=== PATIENT | female | born 1980 | race Caucasian/White ===

== ENCOUNTER → 2021-07-09 07:19 | Outpatient (CLI) | payer OTHER, SELFPAY ==
[2021-07-09 08:36] LABS: Chloride 104 mmol/L (98-107)
[2021-07-09 08:37] LABS: Sodium 137 mmol/L (136-145)
[2021-07-09 08:39] LABS: Alanine Aminotransferase 12 U/L (12-78); Alkaline Phosphatase 85 U/L (38-126); Aspartate Amino Transferase 18 U/L (14-36); Bilirubin,Total 0.6 mg/dl (0.2-1.3); Blood Urea Nitrogen 21 mg/dl (7-17); Estimated Glomerular Filt Rate 111 ml/min (>60); GFR (African American) 135 ML/MIN (>60)
[2021-07-09 08:40] LABS: Albumin Level 4.2 g/dl (3.5-5.0); Albumin/Globulin Ratio 1.6 (1.1-1.8); Calcium 9.5 mg/dl (8.4-10.2); Carbon Dioxide 21 mmol/L (22.0-30.0); Chol/HDL Ratio 3.6 (1-3.5); Cholesterol 147 mg/dl (140-200); Globulin 2.7 g/dL (1.3-3.2); Glucose 196 mg/dl (74-100); HDL Cholesterol 41 mg/dl (40-60); Total Protein,Serum 6.9 g/dl (6.3-8.2); Triglycerides 114 mg/dl (30-150); VLDL Cholesterol 23 mg/dL (0-40)
[2021-07-09 08:41] LABS: Creatinine,Urine Random 37 mg/dL (Not Estab.)
[2021-07-09 08:44] LABS: Microalbumin < 6.000 mg/L (0-16.7)
[2021-07-09 08:51] LABS: Direct LDL Cholesterol 78.42 mg/dL (100-129)
[2021-07-09 08:58] LABS: 25-OH Vitamin D, Total 46.3 ng/mL (30-100)
[2021-07-09 09:10] LABS: Thyroid Stimulating Hormone 0.51 uIU/mL (0.465-4.68)
[2021-07-10 09:22] LABS: Miscellaneous Test 291
== END ==
PROVIDERS: Visit Provider Specialist
DX: E13.9 Other specified diabetes mellitus without complications (principal); E78.5 Hyperlipidemia, unspecified; E55.9 Vitamin D deficiency, unspecified
CPT/HCPCS: 36415; 80053; 80061; 82043; 82306; 82570; 83036; 84443

== ENCOUNTER 2022-05-06 09:01 | Inpatient (IN) | payer BC, SELFPAY ==
[2022-05-06] VITALS (15 sets, daily range): BP systolic 105–127; BP diastolic 57–80; PULSE 99–125; RESP 16–25; TEMP 36.7–37.6; O2SAT 92–100; BMI 30.9; BMI 31.4
--- NOTE | 2022-05-06 09:18 | HMH.EDCP ---
ED Disposition Clinical Impression: Chest pain Qualifiers: Chest pain type: unspecified Qualified Code(s): R07.9 - Chest pain, unspecified DKA (diabetic ketoacidosis) Qualifiers: Diabetes mellitus type: type 1 Diabetes mellitus complication detail: without coma Qualified Code(s): E10.10 - Type 1 diabetes mellitus with ketoacidosis without coma Disposition: Admitted as Observation Condition on Discharge: Serious Referrals: Ramiro Avalos MD [Primary Care Provider] - - Critical Care Critical Care Time: Yes Attestation: On , the high probability of a clinically significant, sudden or life threatening deterioration of the following system(s) required my full and direct attention, intervention and personal management. The time I documented below is in addition to time spent performing reported procedures but includes the following listed in this critical care notation. Total Critical Care Time: 35 Vital system(s) involved:: Metabolic Failure My critical care processes included: Assessment & monitoring of V/S, Data Review/Interpretation, Coordinating Care, Medication Orders and management, Documentation Medical Decision Making - Fam Inquiry Pt receiving controlled substance: No Vital Signs: 05/06/22 09:12 05/06/22 09:30 05/06/22 09:34 Temperature 98.3 F Temperature Source Oral Pulse Rate 115 H 118 H Pulse Rate [Right Radial] 125 H Respiratory Rate 19 Blood Pressure 125/80 125/80 Blood Pressure [Left Arm] 110/78 Blood Pressure Mean 88 Blood Pressure Mean [Left Arm] 88 Blood Pressure Source [Left Arm] Automatic Cuff Blood Pressure Position [Left Arm] Sitting 02 Sat by Pulse Oximetry 99 98 98 Oxygen Delivery Method Room Air 05/06/22 10:00 Temperature Temperature Source Pulse Rate 110 H Pulse Rate [Right Radial] Respiratory Rate 16 Blood Pressure 114/80 Blood Pressure [Left Arm] Blood Pressure Mean 86 Blood Pressure Mean [Left Arm] Blood Pressure Source [Left Arm] Blood Pressure Position [Left Arm] 02 Sat by Pulse Oximetry 98 Oxygen Delivery Method - Lab Data Lab results reviewed: Yes: I reviewed the patient's lab results. Lab Results 05/06/22 09:15: POC Glucose 298 H 05/06/22 09:27: WBC 16.9 H, RBC 5.05, Hgb 16.1, Hct 52.5 H, MCV 103.8 H, MCH 31.9 H, MCHC 30.7 L, RDW 13.1, Plt Count 386, MPV 7.6, Neut % (Auto) 86.5 H, Lymph % (Auto) 9.6 L, [place] % (Auto) 2.7, Eos % (Auto) 0.4, Baso % (Auto) 0.8, Neut # (Auto) 14.6 H, Lymph # (Auto) 1.6, [place] # (Auto) 0.5, Eos # (Auto) 0.1, Baso # (Auto) 0.1 05/06/22 09:27: Sodium 131 L, Potassium 5.0, Chloride 99, Carbon Dioxide 6 L*, Anion Gap 31.0 H, BUN 24 H, Creatinine 1.00, Estimated Creat Clear 96, Estimated GFR 61, Est GFR ( Amer) 74, Glucose 328 H, Calcium 10.5 H, Total Bilirubin 0.8, AST 40 H, ALT 34, Alkaline Phosphatase 125, Troponin I < 0.01, NT-Pro-B Natriuret Pep 45.7, Total Protein 8.5 H, Albumin 5.0, Globulin 3.5 H, Albumin/Globulin Ratio 1.4 05/06/22 09:27: PT 10.6, INR 0.93, APTT 28.9 05/06/22 09:27: Acetone Level Moderate 05/06/22 09:57: VBG pH 7.14 L, VBG pCO2 27.4 L, VBG pO2 78.2 H, VBG HCO3 9.0 L, VBG Total CO2 9.9 L, VBG O2 Saturation 93.6 H, VBG Base Excess -20.0 L Result diagrams: 05/06/22 09:27 05/06/22 09:27 Orders (Tests/Meds): ED MEDICATIONS Generic Name Dose Route Start Last Admin Trade Name Freq PRN Reason Stop Dose Admin Sodium Chloride 1,000 mls @ 999 mls/hr 05/06/22 09:24 05/06/22 09:29 Sod Chlor 0.9% 1000ml Bag IV 05/06/22 10:24 999 mls/hr .Q1H1M ONE Administration Insulin Human Regular 100 unit 101 mls @ 8.08 mls/hr 05/06/22 10:00 / Sodium Chloride IV 06/05/22 09:59 .[id number] SARAVANAN Protocol 8 UNIT/HR Discontinued Medications Generic Name Dose Route Start Last Admin Trade Name Freq PRN Reason Stop Dose Admin Aspirin 324 mg 05/06/22 09:27 05/06/22 09:28 Aspirin 81mg Chewable Tablet PO 05/06/22 09:28 324 mg ONCE ONE Administration Abigail
--- NOTE | 2022-05-06 09:20 | XR_ITS ---
FINAL REPORT CLINICAL HISTORY: Acute chest pain FINDINGS: A single portable view of the chest was obtained. The heart size and pulmonary vascularity are within normal limits. The mediastinum is within normal limits. No acute pulmonary abnormality is identified. The bony thorax is intact. IMPRESSION: No active cardiopulmonary disease. Reviewed, Interpreted and Dictated by Robb Lucero III, MD Transcribed by Amanda Montgomery Authenticated and [facility]
[2022-05-06 09:23] LABS: POC Glucose,Bedside 298 (70-110)
--- NOTE | 2022-05-06 09:29 | PC.NURSE ---
rad at BS
[2022-05-06 09:34] LABS: Basophils # 0.1 K/mm3 (0-0.2); Basophils % 0.8 % (0.1-2.0); Eosinophils # 0.1 K/mm3 (0.0-0.4); Eosinophils % 0.4 % (0.1-12.0); Hematocrit 52.5 % (37.0-47.0); Hemoglobin 16.1 g/dL (12.2-16.2); Lymphocytes # 1.6 K/mm3 (0.7-4.5); Lymphocytes % 9.6 % (10-50); Mean Corpuscular HGB Conc 30.7 g/dL (31.8-35.4); Mean Corpuscular Hemoglobin 31.9 pg (27.0-31.2); Mean Corpuscular Volume 103.8 fl (81-99); Mean Platelet Volume 7.6 fl (7.4-10.4); Monocytes # 0.5 K/mm3 (0.1-1.0); Monocytes % 2.7 % (1.7-9.3); Neutrophils # 14.6 K/mm3 (1.8-7.8); Neutrophils % 86.5 % (37.0-80.0); Platelet Count 386 K/mm3 (142-424); Red Blood Count 5.05 M/mm3 (4.20-5.40); Red Cell Distribution Width 13.1 % (11.5-17.5); White Blood Count 16.9 K/mm3 (4.8-10.8)
--- NOTE | 2022-05-06 09:39 | ECG_ITS ---
APPROVED REPORT Exam: Resting ECG HR:114 bpm ECG Measurements Heart Rate 114 AXES MS 104 P 6 QRSd 94 QRS 6 QT 333 T 19 QTc 401 Conclusion SINUS TACHYCARDIA WITH SHORT MS INTERVAL ABNORMAL RHYTHM ECG UNCONFIRMED REPORT Electronically signed by : Sushant Mak MD 05/06/2022 21:43:25
[2022-05-06 09:42] LABS: Chloride 99 mmol/L (98-107); Sodium 131 mmol/L (136-145)
[2022-05-06 09:44] LABS: Blood Urea Nitrogen 24 mg/dl (7-17); Creatinine Clearance Estimated 96 mL/min (50-200); Estimated Glomerular Filt Rate 61 ml/min (>60); GFR (African American) 74 ML/MIN (>60)
[2022-05-06 09:45] LABS: Alanine Aminotransferase 34 U/L (12-78); Albumin/Globulin Ratio 1.4 (1.1-1.8); Alkaline Phosphatase 125 U/L (38-126); Aspartate Amino Transferase 40 U/L (14-36); Bilirubin,Total 0.8 mg/dl (0.2-1.3); Calcium 10.5 mg/dl (8.4-10.2); Globulin 3.5 g/dL (1.3-3.2); Glucose 328 mg/dl (74-100); Total Protein,Serum 8.5 g/dl (6.3-8.2)
[2022-05-06 09:46] LABS: MANUAL DIFFERENTIAL MANUAL DIFFERENTIAL (MANUAL DIFF)
[2022-05-06 09:54] LABS: Carbon Dioxide 6 mmol/L (22.0-30.0); NT Pro Brain Natriuretic Pep. 45.7 pg/mL (0-125)
--- NOTE | 2022-05-06 09:54 | PC.NURSE ---
lab called with critical CO2, notified KELLEE BARAKAT at this time
--- NOTE | 2022-05-06 09:56 | PC.NURSE ---
KELLEE BARAKAT reports he is going to start pt on insulin drip, states once we get pt started on the insulin we are then to turn pts insulin pump off.
[2022-05-06 09:59] LABS: Troponin I < 0.01 ng/ml (0.00-0.034)
--- NOTE | 2022-05-06 09:59 | PC.NURSE ---
notified RT of Vbg
--- NOTE | 2022-05-06 10:01 | PC.NURSE ---
contacted pharmacy for insulin drip Order placed per this nurse via verbal order per ER MD, order was repeated and verified Insulin drip (regular insulin) at 8 units/hr, repeat fsbs in 1 hour.
[2022-05-06 10:06] LABS: Activated Partial Thrombo Time 28.9 seconds (22.8-30.6); INR 0.93 (0.9-1.1); Prothrombin Time 10.6 seconds (10.1-12.5)
[2022-05-06 10:07] LABS: VBG Oxygen Saturation 93.6 % (50-70); VBG PCO2 27.4 mmol/L (35-51); VBG PO2 78.2 mmol/L (28-40); VBG Total CO2 9.9 mmol/L (23-27)
[2022-05-06 10:08] LABS: Coronavirus 19, PCR Not Detected (NotDetected); Influenza A, PCR Not Detected (NotDetected); Influenza B, PCR Not Detected (NotDetected)
[2022-05-06 10:11] LABS: Acetone, Serum (Rapid) Moderate (None Detect)
[2022-05-06 10:11] LABS: VBG PH 7.14 mmol/L (7.31-7.41)
--- NOTE | 2022-05-06 10:11 | PC.NURSE ---
's office has been called. He will call back.
--- NOTE | 2022-05-06 10:12 | PC.NURSE ---
on the phone with
--- NOTE | 2022-05-06 10:16 | PC.NURSE ---
Care management has been called.
[2022-05-06 10:25] LABS: Lymphocytes % 19 % (10-50); Macrocytosis 1+; Monocytes % 1 % (2-9); Neutrophils % 80 % (42-76); Total Cells Counted 100
[2022-05-06 10:26] LABS: Platelet Estimate Normal
--- NOTE | 2022-05-06 10:26 | PC.NURSE ---
Tv Production Assistant is going to bring an IV pump down to ED so we can begin this insulin drip
[2022-05-06 10:27] LABS: Giant Platelets 1+
--- NOTE | 2022-05-06 10:27 | PC.NURSE ---
per warehouse processor pt assigned to room 217
--- NOTE | 2022-05-06 11:42 | PC.NURSE ---
Rounded on patient. Patient asked if she could get something for nausea and some crackers. Gave patient crackers and informed nurse and doctor that patient felt nauseous.
[2022-05-06 11:46] LABS: POC Glucose,Bedside 191 (70-110)
--- NOTE | 2022-05-06 11:49 | PC.NURSE ---
attempted to call report to second floor at this time, no answer from receiving nurse.
--- NOTE | 2022-05-06 11:54 | PC.NURSE ---
Called report to Janell
--- NOTE | 2022-05-06 11:58 | PC.NURSE ---
Lab will be to collect lab as ordered
[2022-05-06 12:02] LABS: Microscopic, Urine URINE MICROSCOPIC (MICROSCOPIC)
[2022-05-06 12:16] LABS: Appearance,Urine CLEAR (Clear); Bilirubin,Urine Negative (Negative); Blood, Urine 1+ (Negative); Color,Urine YELLOW (Yellow); Glucose,Urine (UA) 2+ (Negative); Ketones,Urine 3+ (Negative); Leukocyte Esterase,Urine Negative (Negative); Nitrate,Urine Negative (Negative); PH,Urine 5.5 (5.0-8.5); Protein,Urine TRACE (Negative); Specific Gravity, Urine >= 1.030 (1.005-1.030); Urobilinogen,Urine 0.2 EU/dl (0.2)
--- NOTE | 2022-05-06 12:17 | PC.NURSE ---
brought patient up from er to 217 at approximately 1210
[2022-05-06 12:29] LABS: Bacteria,Urine Trace /lpf; RBC,Urine Occasional #/hpf (0-3); Yeast,Urine 2+ /lpf
[2022-05-06 12:47] LABS: Chloride 101 mmol/L (98-107); Sodium 132 mmol/L (136-145)
[2022-05-06 12:48] LABS: Potassium 4.8 mmoL/L (3.5-5.1)
[2022-05-06 12:50] LABS: Blood Urea Nitrogen 21 mg/dl (7-17); Creatinine Clearance Estimated 123 mL/min (50-200); Estimated Glomerular Filt Rate 79 ml/min (>60); GFR (African American) 96 ML/MIN (>60)
[2022-05-06 12:51] LABS: Anion Gap 24.8 mEq/L (5-15); Calcium 9.7 mg/dl (8.4-10.2); Carbon Dioxide 11 mmol/L (22.0-30.0); Glucose 181 mg/dl (74-100)
--- NOTE | 2022-05-06 12:53 | HMH.PHAVTE ---
[facility] Pharmacy VTE Monitoring - Patient Demographics Admission date: 05/06/22 Report Date: 05/06/22 Time: 12:54 Allergies/Adverse Reactions: Patient Allergies No Known Allergies Allergy (Verified 01/12/21 13:39) Height: 1.63 m Weight: 83.121 kg Patient Problems: Current Active Problems Chest pain (Acute) DKA (diabetic ketoacidosis) (Acute) - VTE Risk Labs: VTE Related Lab Results Hgb 16.1 g/dL (12.2-16.2) 05/06/22 09:27 Hct 52.5 % (37.0-47.0) H 05/06/22 09:27 Plt Count 386 K/mm3 (142-424) 05/06/22 09:27 PT 10.6 seconds (10.1-12.5) 05/06/22 09:27 INR 0.93 (0.9-1.1) 05/06/22 09:27 APTT 28.9 seconds (22.8-30.6) 05/06/22 09:27 BUN 21 mg/dl (7-17) H 05/06/22 12:13 Creatinine 0.80 mg/dl (0.52-1.04) 05/06/22 12:13 Estimated Creat Clear 123 mL/min (50-200) 05/06/22 12:13 Was VTE Risk Assessment Performed: Yes VTE Score: 0 Clinical Trial Participant: No - Prophylaxis VTE Prophylaxis Ordered?: Yes Types of VTE Prophylaxis: TEDS Knee High
[2022-05-06 13:00] LABS: Acetone, Serum (Rapid) Small (None Detect)
[2022-05-06 15:50] LABS: Chloride 104 mmol/L (98-107); Potassium 4.4 mmoL/L (3.5-5.1); Sodium 130 mmol/L (136-145)
[2022-05-06 15:53] LABS: Anion Gap 16.4 mEq/L (5-15); Blood Urea Nitrogen 19 mg/dl (7-17); Carbon Dioxide 14 mmol/L (22.0-30.0); Creatinine Clearance Estimated 140 mL/min (50-200); Estimated Glomerular Filt Rate 93 ml/min (>60); GFR (African American) 112 ML/MIN (>60); Glucose 147 mg/dl (74-100)
[2022-05-06 18:17] LABS: POC Glucose,Bedside 118 (70-110)
[2022-05-06 18:17] LABS: POC Glucose,Bedside 121 (70-110)
[2022-05-06 18:17] LABS: POC Glucose,Bedside 133 (70-110)
[2022-05-06 18:17] LABS: POC Glucose,Bedside 117 (70-110)
--- NOTE | 2022-05-06 18:20 | PC.NURSE ---
shift summary: New admitfor DKA. Pt A&OX4. O2 sat high 90s on RA. No BM this shift. Insulin drip is at 4 units/hr. FSBS q2. NS is running at150 mL/hr. Pt. ambulates independently. call light in reach, bed in lowest position and wheels locked.
[2022-05-06 20:30] LABS: Anion Gap 12.3 mEq/L (5-15); Blood Urea Nitrogen 19 mg/dl (7-17); Calcium 8.4 mg/dl (8.4-10.2); Carbon Dioxide 16 mmol/L (22.0-30.0); Chloride 105 mmol/L (98-107); Creatinine Clearance Estimated 140 mL/min (50-200); Estimated Glomerular Filt Rate 93 ml/min (>60); GFR (African American) 112 ML/MIN (>60); Glucose 201 mg/dl (74-100); Potassium 4.3 mmoL/L (3.5-5.1); Sodium 129 mmol/L (136-145)
[2022-05-06 20:32] LABS: Acetone, Serum (Rapid) Moderate (None Detect)
[2022-05-06 20:47] LABS: POC Glucose,Bedside 153 (70-110)
--- NOTE | 2022-05-06 21:00 | HMH.HP ---
*Admission Date: 05/06/22 *Chief complaint: Vomiting, fatigue *History of present illness: 41-year-old female who has had known diabetes for 8 years. Initially diagnosed as type II, but with medicine failures saw endocrinology at [facility] and was diagnosed as a type 1.5 diabetic and transitioned over to insulin and has been on an insulin pump for the past several years. Has done very well and has never been in DKA before. Continues to take metformin and Farxiga for cardiovascular and kidney benefits. About 5 days ago had some mild nausea and felt unwell but then recovered on Friday but went to a wedding on Friday where she drank quite a bit of alcohol and the following day did not feel like eating or drinking much and became somewhat more nauseated. This morning she came to the ER because her glucose was very high and she felt poorly and had acetone in her urine. Was found to have moderate acetone in her blood, low pH and hyperglycemia. Admitted to hospital with DKA protocol. [facility] History I have reviewed the patient's past medical history: Yes Medical History: Reports:: Diabetes Mellitus Type 1, Diabetes Mellitus Type 2, Hyperlipidemia, Hypertension *Have you ever received a pneumonia vaccine?: No *Have you received a flu vaccine this season?: Yes Other Surgeries: Yes: Cholecystectomy, Diagnostic Lap Amputation: No Fractures: No - *Social History Last grade of school completed: Some college Smoking Status: Current every day smoker Tobacco Type: cigarettes # Packs/Day (cigarettes): 1 Alcohol Intake: current Alcohol Intake Frequency:: holidays/special occasions only *Occupational Status:: employed Housing: house Household Members: family *Travel in the last 8 weeks: None Family Hx:: Cancer, Stroke Review of Systems - Review of Systems Review of systems:: pertinent systems reviewed and negative unless documented below Meds Home Medications Medication Instructions Recorded Confirmed Type citalopram 20 mg tablet 20 mg PO DAILY 30 Days #30 03/14/18 05/06/22 History metformin 500 mg tablet,extended 500 mg PO BID 30 Days #120 03/14/18 05/06/22 History release 24 hr pravastatin 20 mg tablet 20 mg PO DAILY 30 Days #30 03/14/18 05/06/22 History lisinopril 5 mg tablet 5 mg PO DAILY tab 01/12/21 05/06/22 History Aspirin [Low Dose Aspirin EC] 81 mg PO DAILY 05/06/22 05/06/22 History Dapagliflozin Propanediol [Farxiga] 10 mg PO DAILY 05/06/22 05/06/22 History Insulin Aspart [Novolog] See Protocol SQ DIRECTED PRN 05/06/22 05/06/22 History Allergies Allergy/AdvReac Type Severity Reaction Status Date / Time No Known Allergies Allergy Verified 01/12/21 13:39 Exam Vital signs and Labs for Last 24 Hours: Temp Pulse Resp BP Pulse Ox 99.7 F H 106 H 25 H 127/68 96 05/06/22 20:00 05/06/22 18:00 05/06/22 18:00 05/06/22 18:00 05/06/22 20:00 Laboratory Results - last 24 hr 05/06/22 09:15: POC Glucose 298 H 05/06/22 09:27: WBC 16.9 H, RBC 5.05, Hgb 16.1, Hct 52.5 H, MCV 103.8 H, MCH 31.9 H, MCHC 30.7 L, RDW 13.1, Plt Count 386, MPV 7.6, Neut % (Auto) 86.5 H, Lymph % (Auto) 9.6 L, [place] % (Auto) 2.7, Eos % (Auto) 0.4, Baso % (Auto) 0.8, Neut # (Auto) 14.6 H, Lymph # (Auto) 1.6, [place] # (Auto) 0.5, Eos # (Auto) 0.1, Baso # (Auto) 0.1, Total Counted 100, Neutrophils % (Manual) 80 H, Lymphocytes % (Manual) 19, Monocytes % (Manual) 1 L, Platelet Estimate Normal, Giant Platelets 1+, Macrocytosis 1+ 05/06/22 09:27: Sodium 131 L, Potassium 5.0, Chloride 99, Carbon Dioxide 6 L*, Anion Gap 31.0 H, BUN 24 H, Creatinine 1.00, Estimated Creat Clear 96, Estimated GFR 61, Est GFR ( Amer) 74, Glucose 328 H, Calcium 10.5 H, Total Bilirubin 0.8, AST 40 H, ALT 34, Alkaline Phosphatase 125, Troponin I < 0.01, NT-Pro-B Natriuret Pep 45.7, Total Protein 8.5 H, Albumin 5.0, Globulin 3.5 H, Albumin/Globulin Ratio 1.4 05/06/22 09:27: PT 10.6, INR 0.93, APTT 28.9 05/06/22 09:27: Acetone Level Moderate 05/06/22 09:57: VBG pH
--- NOTE | 2022-05-06 21:20 | PC.NURSE ---
GAP IS CLOSED AT 8, BUT ACETONE STILL PRESENT RESULTED MODERATE; KEEPING INSULIN DRIP ON AT RATE OF 4UNITS/HR PER DKA PROTOCOL
[2022-05-07] VITALS (8 sets, daily range): BP systolic 103–122; BP diastolic 61–76; PULSE 74–101; RESP 12–20; TEMP 36.7–37.2; O2SAT 92–99; BMI 32.2
[2022-05-07 06:08] LABS: Basophils % 0.4 % (0.1-2.0); Eosinophils # 0.1 K/mm3 (0.0-0.4); Eosinophils % 0.4 % (0.1-12.0); Hematocrit 42.6 % (37.0-47.0); Lymphocytes # 2.6 K/mm3 (0.7-4.5); Lymphocytes % 25.1 % (10-50); Mean Corpuscular HGB Conc 31.2 g/dL (31.8-35.4); Mean Corpuscular Hemoglobin 31.7 pg (27.0-31.2); Mean Corpuscular Volume 101.7 fl (81-99); Mean Platelet Volume 7.4 fl (7.4-10.4); Monocytes # 0.5 K/mm3 (0.1-1.0); Monocytes % 5.1 % (1.7-9.3); Neutrophils # 7.1 K/mm3 (1.8-7.8); Platelet Count 267 K/mm3 (142-424); Red Blood Count 4.19 M/mm3 (4.20-5.40); Red Cell Distribution Width 13.4 % (11.5-17.5); White Blood Count 10.3 K/mm3 (4.8-10.8)
[2022-05-07 06:12] LABS: Chloride 109 mmol/L (98-107); Potassium 3.7 mmoL/L (3.5-5.1); Sodium 133 mmol/L (136-145)
[2022-05-07 06:13] LABS: Hemoglobin 13.3 g/dL (12.2-16.2)
[2022-05-07 06:15] LABS: Anion Gap 10.7 mEq/L (5-15); Blood Urea Nitrogen 14 mg/dl (7-17); Carbon Dioxide 17 mmol/L (22.0-30.0); Creatinine Clearance Estimated 202 mL/min (50-200); Estimated Glomerular Filt Rate 137 ml/min (>60); GFR (African American) 165 ML/MIN (>60)
[2022-05-07 06:16] LABS: Calcium 8.1 mg/dl (8.4-10.2); Glucose 130 mg/dl (74-100)
[2022-05-07 06:16] LABS: POC Glucose,Bedside 180 (70-110)
[2022-05-07 06:16] LABS: POC Glucose,Bedside 107 (70-110)
[2022-05-07 06:16] LABS: POC Glucose,Bedside 100 (70-110)
[2022-05-07 06:16] LABS: POC Glucose,Bedside 138 (70-110)
[2022-05-07 06:16] LABS: POC Glucose,Bedside 103 (70-110)
[2022-05-07 06:16] LABS: POC Glucose,Bedside 112 (70-110)
[2022-05-07 06:20] LABS: Acetone, Serum (Rapid) Small (None Detect)
--- NOTE | 2022-05-07 08:18 | PC.NURSE ---
Dr. Rogelio rizo. Insulin gtt turned OFF and pt's subq insulin pump restarted. Repeat BMP @ 4pm today. May d/c home later today pending blood sugar results and BMP result.
--- NOTE | 2022-05-07 13:38 | PC.NURSE ---
ROUNDED ON PATIENT ON MORNING ROUNDS WITH MD. PROVIDED SUPERVISOR COVERING AND LINING TO CHARGE PATIENTS INSULIN PUMP. PATIENT IS SITTING UP IN BED FEELING BETTER. NO CONCERNS WITH HER MEDICATIONS. HAS A PLAN AT HOME IF PUMP DOESN'T WORK. MD PLANS TURN INSULIN DRIP OFF AND SEE HOW PUMP MANAGES TODAY AND PATIENT COULD POSSIBLY DC THIS AFTERNOON. NO QUESTIONS. HAS A FOLLOW UP WITH LABORER PIE BAKERY COMING UP IN MAY. AFTERNOON ROUNDS NOTED TO BE SLEEPING. NO ISSUES HAVE BEEN NOTED.
[2022-05-07 16:47] LABS: Anion Gap 9.9 mEq/L (5-15); Blood Urea Nitrogen 13 mg/dl (7-17); Calcium 8.2 mg/dl (8.4-10.2); Carbon Dioxide 21 mmol/L (22.0-30.0); Chloride 109 mmol/L (98-107); Creatinine Clearance Estimated 202 mL/min (50-200); Estimated Glomerular Filt Rate 137 ml/min (>60); GFR (African American) 165 ML/MIN (>60); Glucose 173 mg/dl (74-100); Potassium 3.9 mmoL/L (3.5-5.1); Sodium 136 mmol/L (136-145)
--- NOTE | 2022-05-07 17:15 | HMH.DCSUM ---
General - General Admission date:: 05/06/22 Discharge date: 05/07/22 HPI HPI: 41-year-old female who has had known diabetes for 8 years. Initially diagnosed as type II, but with medicine failures saw endocrinology at [facility] and was diagnosed as a type 1.5 diabetic and transitioned over to insulin and has been on an insulin pump for the past several years. Has done very well and has never been in DKA before. Continues to take metformin and Farxiga for cardiovascular and kidney benefits. About 5 days ago had some mild nausea and felt unwell but then recovered on Friday but went to a wedding on Friday where she drank quite a bit of alcohol and the following day did not feel like eating or drinking much and became somewhat more nauseated. This morning she came to the ER because her glucose was very high and she felt poorly and had acetone in her urine. Was found to have moderate acetone in her blood, low pH and hyperglycemia. Admitted to hospital with DKA protocol. Hospital Course Hospital Course: Admitted for DKA and initiated on insulin drip per protocol. Patient's gap closed fairly rapidly over the first 24 hours. Tolerating p.o. intake. Feeling significantly better the following day. Able to transition back to her home pump. Monitored through the day on her home pump with repeat labs in the afternoon. Gap remained closed. Blood sugar remained controlled. She is tolerating p.o. intake, anion gap is closed, and back to her home pump system, meeting medical criteria for discharge home. Examined on day of discharge. Recommend following up with her primary care and her contract technical writer in the coming weeks. No changes to home regimen. No new medications. Objective Vital signs: Temp Pulse Resp BP Pulse Ox 98.2 F 74 19 107/69 L 98 05/07/22 12:00 05/07/22 12:00 05/07/22 12:00 05/07/22 12:00 05/07/22 12:00 Narrative: - Constitutional no acute distress - *Routine HEENT Exam Head: Present: normocephalic Eye: Present: EOMI, PERRL ENT: Present: mucous membranes moist - *Routine Neck Exam Present: supple. Absent: lymphadenopathy - *Routine Respiratory Exam Present: CTA bilaterally - *Routine Cardiovascular Exam Present: RRR - *Routine Abdominal Exam Present: soft, normoactive bowel sounds. Absent: tenderness - *Routine Extremities Exam Absent: cyanosis, clubbing, edema - *Routine Skin Exam Present: warm. Absent: rash - *Routine Neurological Exam Present: alert, oriented X3 Results Labs on day of discharge: Labs from last 24 hours 05/07/22 05/07/22 05/07/22 16:16 05:43 05:43 WBC 10.3 D RBC 4.19 L Hgb 13.3 D Hct 42.6 MCV 101.7 H MCH 31.7 H MCHC 31.2 L RDW 13.4 Plt Count 267 D MPV 7.4 Neut % (Auto) 69.0 Lymph % (Auto) 25.1 [place] % (Auto) 5.1 Eos % (Auto) 0.4 Baso % (Auto) 0.4 Neut # (Auto) 7.1 Lymph # (Auto) 2.6 [place] # (Auto) 0.5 Eos # (Auto) 0.1 Baso # (Auto) 0.0 Sodium 136 133 L Potassium 3.9 3.7 Chloride 109 H 109 H Carbon Dioxide 21 L 17 L Anion Gap 9.9 10.7 BUN 13 14 D Creatinine 0.50 L 0.50 L D Estimated Creat Clear 202 202 Estimated GFR 137 137 Est GFR ( Amer) 165 165 D Glucose 173 H D 130 H D POC Glucose Calcium 8.2 L 8.1 L Acetone Level Small 05/07/22 05/07/22 05/07/22 05:37 04:00 02:02 WBC RBC Hgb Hct MCV MCH MCHC RDW Plt Count MPV Neut % (Auto) Lymph % (Auto) [place] % (Auto) Eos % (Auto) Baso % (Auto) Neut # (Auto) Lymph # (Auto) [place] # (Auto) Eos # (Auto) Baso # (Auto) Sodium Potassium Chloride Carbon Dioxide Anion Gap BUN Creatinine Estimated Creat Clear Estimated GFR Est GFR ( Amer) Glucose POC Glucose 112 H 103 100 Calcium Acetone Level 05/07/22 05/06/22 0
[2022-05-08 00:42] LABS: POC Glucose,Bedside 223 (70-110)
--- NOTE | 2022-05-10 11:55 | CARE MANAGER ---
Attempted to contact patient x3 related to hospital discharge. No answer. JUSTINO Soni
== END 2022-05-07 17:33 | disposition home or self-care (01) | DRG 639 ==
LOC: ER 10:02 → 2ND 12:40
PROVIDERS: Internal Medicine Adolescent Medicine; Admitting Provider Internal Medicine Adolescent Medicine; Emergency Provider Emergency Medicine; PCP Internal Medicine Hematology & Oncology; Visit Provider Internal Medicine Adolescent Medicine
DX: E13.10 Other specified diabetes mellitus with ketoacidosis without coma (principal); F17.210 Nicotine dependence, cigarettes, uncomplicated; Z79.4 Long term (current) use of insulin; E78.5 Hyperlipidemia, unspecified; I10 Essential (primary) hypertension; R07.9 Chest pain, unspecified
CPT/HCPCS: 36415; 71045; 80048; 80053; 81001; 82009; 82803; 82962; 83880; 84484; 85007; 85025; 85610; 85730; 93005; 99291; C9803; J2405; U0003; U0005

== ENCOUNTER 2022-08-25 13:02 | Emergency (ER) | payer BC, SELFPAY ==
[2022-08-25 13:25] VITALS: BP 139/91; PULSE 107; RESP 18; TEMP 37.2; O2SAT 100; BMI 32.2
--- NOTE | 2022-08-25 13:41 | EXP.UTC ---
Discharge Plan Disposition Patient Disposition: Home, Self-Care Condition: Good Prescriptions Prescriptions: New ondansetron HCl 4 mg tablet 4 mg PO Q8H 4 Days Qty: 12 0RF cefdinir 300 mg capsule 300 mg PO BID Qty: 20 0RF No Action lisinopril 5 mg tablet 5 mg PO DAILY metformin 500 mg tablet extended release 24 hr 1,000 mg PO BID 30 Days Qty: 120 pravastatin 20 mg tablet 20 mg PO HS 30 Days Qty: 30 amoxicillin-pot clavulanate 875-125 mg tablet 1 tab PO BID 10 Days Qty: 20 0RF aspirin 81 MG tablet,delayed release (DR/EC) 81 mg PO DAILY insulin aspart U-100 100 UNIT/ML solution 0 units SQ DIRECTED Rx Instructions: USE in insulin pump DIRECTED. TOTAL DAILY DOSE UP TO 80 UNITS. citalopram 40 MG tablet 40 mg PO DAILY albuterol sulfate 8.5 GM HFA aerosol inhaler 2 puff IH Q6HP PRN (Reason: Shortness Of Breath) Referrals Follow up/Referrals: Abbi Noriega PA [Primary Care Provider] - See instructions Activity Restrictions/Add. Instructions Additional Instructions/Restrictions: *Monitor Temp, Over the counter Motrin or Tylenol as directed/as needed Tylenol every 4 hours and Motrin every 6 hours (as long as your family doctor has told you that you can take it) for fever or pain. and straight to ER if unable to lower temp less than 101.0 after medication given *Warm salt water gargles may help to soothe the throat *Throat Lozenges? *Warm fluids like tea with honey may help to soothe the throat? *Sleep elevated *Humidifier/Vaporizer Follow up IMMEDIATELY for new or worsening symptoms or no Noticeable improvement over the next 48-72 hours. 911 for difficulty breathing or swallowing You were tested for today for COVID19 your test result should be back in the next 24-48 hours, you may check your results on the [facility] My Health Portal Clinical Impressions Clinical Impression: Otitis media Instructions Patient Instructions: Middle Ear Infection, DI for Fever (Symptom) -- Adult Discharge ED Provider: Marti Keenan [facility] HPI General Stated complaint: BA, [place], Fever, Congestion Mode of Arrival: Ambulatory Source of Information: Patient Limitations: No Limitations Time Seen by Provider: 08/25/22 13:41 Description of Symptoms (Recalled from Triage Doc. by RN): PATIENT C/O FEVER, BODY ACHES, CONGESTION, AND VOMITING X 3 DAYS HEENT Symptoms (Recalled from RN notes): No Resp Symptoms (Recalled from RN notes): No Skin Symptoms (Recalled from RN notes): No MS Symptoms (Recalled from RN notes): No Functional Status (Recalled from RN notes): WNL History of Present Illness Provider Complaint: Patient states that she recently traveled to [facility] States that she has been having pain in her right ear, body aches, chills, fever and headache States that feels like she may have the flu States that she has also had some N/V she is a diabetic but has been keeping watch on it and they havent been high Related Data Home Medications Medication Instructions Recorded Confirmed metformin 500 mg tablet,extended 1,000 mg PO BID Diabetes 30 days 03/14/18 08/08/22 release 24 hr ##120 pravastatin 20 mg tablet 20 mg PO HS Cholesterol 30 days 03/14/18 08/08/22 ##30 lisinopril 5 mg tablet 5 mg PO DAILY Hypertension 01/12/21 08/08/22 aspirin 81 mg tablet,delayed 81 mg PO DAILY HEART HEALTH 05/06/22 08/08/22 release insulin aspart U-100 100 unit/mL 0 units SQ DIRECTED Diabetes 05/06/22 08/08/22 subcutaneous solution albuterol sulfate 90 mcg/actuation 2 puff inhalation Q6HP PRN 05/07/22 08/08/22 aerosol inhaler Shortness Of Breath citalopram 40 mg tablet 40 mg PO DAILY MOOD 05/07/22 08/08/22 Previous Rx's Medication Instructions Recorded amoxicillin 875 mg-potassium 1 tab PO BID 10 days #20 tabs 08/08/22 clavulanate 125 mg tablet cefdinir 300 mg capsule 300 mg PO BID #20 caps 08/25/22 ondansetron HCl 4 mg tablet 4 mg PO Q8
[2022-08-25 13:42] LABS: UTC Influenza A Antigen Negative (Negative); UTC Influenza B Antigen Negative (Negative)
[2022-08-25 13:54] VITALS: BP 139/91; PULSE 107; RESP 18; TEMP 37.2; O2SAT 100
== END 2022-08-25 13:59 | disposition home or self-care (01) ==
PROVIDERS: Emergency Provider Nurse Practitioner; PCP Physician Assistant
DX: U07.1 COVID-19 (principal); H66.91 Otitis media, unspecified, right ear; R06.02 Shortness of breath; R51.9 Headache, unspecified; R00.0 Tachycardia, unspecified; R11.2 Nausea with vomiting, unspecified; M79.10 Myalgia, unspecified site; E78.5 Hyperlipidemia, unspecified; E11.9 Type 2 diabetes mellitus without complications; F17.210 Nicotine dependence, cigarettes, uncomplicated; Z79.4 Long term (current) use of insulin; Z79.84 Long term (current) use of oral hypoglycemic drugs; Z79.51 Long term (current) use of inhaled steroids; Z79.52 Long term (current) use of systemic steroids; Z79.82 Long term (current) use of aspirin; Z79.899 Other long term (current) drug therapy
CPT/HCPCS: 87804; 99213; C9803; G0463; U0003; U0005

== ENCOUNTER → 2022-10-21 14:25 | Outpatient (CLI) | payer BC, SELFPAY | PROVIDERS: PCP Physician Assistant; Visit Provider Physician Assistant | DX: B95.7 Other staphylococcus as the cause of diseases classified elsewhere; T81.41XA Infection following a procedure, superficial incisional surgical site, initial encounter; E11.9 Type 2 diabetes mellitus without complications; Z79.84 Long term (current) use of oral hypoglycemic drugs; R22.2 Localized swelling, mass and lump, trunk | CPT/HCPCS: 87070; 87077; 87186; 87205 ==

== ENCOUNTER → 2023-01-08 07:22 | Outpatient (CLI) | payer BC, SELFPAY ==
[2023-01-08 09:08] LABS: Alanine Aminotransferase 15 U/L (12-78); Albumin Level 4.1 g/dl (3.5-5.0); Albumin/Globulin Ratio 1.7 (1.1-1.8); Alkaline Phosphatase 83 U/L (38-126); Anion Gap 9.6 mEq/L (5-15); Aspartate Amino Transferase 18 U/L (14-36); Bilirubin,Total 0.4 mg/dl (0.2-1.3); Blood Urea Nitrogen 10 mg/dl (7-17); Calcium 9.1 mg/dl (8.4-10.2); Carbon Dioxide 25 mmol/L (22.0-30.0); Chloride 104 mmol/L (98-107); Chol/HDL Ratio 3.5 (1-3.5); Cholesterol 99 mg/dl (140-200); Estimated Glomerular Filt Rate 110 ml/min (>60); GFR (African American) 133 ML/MIN (>60); Globulin 2.4 g/dL (1.3-3.2); Glucose 199 mg/dl (74-100); HDL Cholesterol 28 mg/dl (40-60); Potassium 4.6 mmoL/L (3.5-5.1); Sodium 134 mmol/L (136-145); Total Protein,Serum 6.5 g/dl (6.3-8.2); Triglycerides 138 mg/dl (30-150); VLDL Cholesterol 28 mg/dL (0-40)
[2023-01-08 09:10] LABS: Creatinine,Urine Random 146 mg/dL (Not Estab.)
[2023-01-08 09:20] LABS: Direct LDL Cholesterol 52.13 mg/dL (100-129)
[2023-01-08 09:23] LABS: 25-OH Vitamin D, Total 30.4 ng/mL (30-100); Free T4 (Free Thyroxine) 0.94 ng/dl (0.78-2.19)
[2023-01-08 09:35] LABS: Microalbumin < 6.000 mg/L (0-16.7)
[2023-01-08 09:36] LABS: Thyroid Stimulating Hormone 0.84 uIU/mL (0.465-4.68)
[2023-01-08 10:50] LABS: Hemoglobin A1C 7.5 % (4.0-6.0)
[2023-01-09 12:12] LABS: Triiodothyronine (T3) Free 3.4 pg/mL (2.0-4.4)
[2023-01-11 23:08] LABS: Fructosamine 278
== END ==
LOC: LAB 07:23
PROVIDERS: PCP Physician Assistant; Visit Provider Specialist
DX: E13.9 Other specified diabetes mellitus without complications (principal); E78.5 Hyperlipidemia, unspecified; I10 Essential (primary) hypertension; E55.9 Vitamin D deficiency, unspecified; Z79.4 Long term (current) use of insulin
CPT/HCPCS: 36415; 80053; 80061; 82043; 82306; 82570; 82985; 83036; 84439; 84443; 84481

== ENCOUNTER 2023-12-25 07:28 | Outpatient (CLI) | payer BC, SELFPAY ==
[2023-12-25 08:17] LABS: Chloride 108 mmol/L (98-107); Potassium 4.2 mmoL/L (3.5-5.1); Sodium 138 mmol/L (136-145)
[2023-12-25 08:20] LABS: Anion Gap 8.2 mEq/L (5-15); Blood Urea Nitrogen 11 mg/dl (7-17); Calcium 9.5 mg/dl (8.4-10.2); Carbon Dioxide 26 mmol/L (22.0-30.0); Cholesterol 106 mg/dl (140-200); Estimated Glomerular Filt Rate 110 ml/min (>60); GFR (African American) 133 ML/MIN (>60); Glucose 151 mg/dl (74-100); Triglycerides 71 mg/dl (30-150); VLDL Cholesterol 14 mg/dL (0-40)
[2023-12-25 08:21] LABS: Chol/HDL Ratio 3.5 (1-3.5); HDL Cholesterol 30 mg/dl (40-60)
[2023-12-25 08:37] LABS: Direct LDL Cholesterol 61.15 mg/dL (100-129)
[2023-12-25 10:02] LABS: Hemoglobin A1C 7.3 % (4.0-6.0)
[2023-12-25 11:15] LABS: Vitamin B12 462 pg/mL (239-931)
== END 2023-12-25 23:59 ==
LOC: LAB 07:30
PROVIDERS: PCP Physician Assistant; Visit Provider Nurse Practitioner Acute Care
DX: E11.69 Type 2 diabetes mellitus with other specified complication (principal); E78.5 Hyperlipidemia, unspecified; Z79.899 Other long term (current) drug therapy; Z79.4 Long term (current) use of insulin
CPT/HCPCS: 36415; 80048; 80061; 82607; 83036